=== PATIENT | female | born 1995 ===

== ENCOUNTER 2017-09-28 19:15 | Emergency (ER) | payer OTHER ==
[2017-09-28] MEDS ORDERED: Prochlorperazine 10 MG/2 ML VIAL ONE (19:34)
[2017-09-28] MEDS ORDERED: Ketorolac Tromethamine 30 MG/ML VIAL ONE (19:34)
[2017-09-28] MEDS ORDERED: diphenhydrAMINE 50 MG/ML VIAL ONE (19:34)
== END 2017-09-28 20:23 | disposition home or self-care (01) ==
LOC: SCSER 19:15
DX: G43.909 Migraine, unspecified, not intractable, without status migrainosus (principal)
CPT/HCPCS: 96374; 96375; J0780; J1200; J1885